=== PATIENT | male | born 1955 | race Two or more races ===

== ENCOUNTER 2017-04-03 23:17 | Emergency (ER) | payer OTHER ==
[~2017-04-03] VITALS: Ht 180.3 cm; Wt 77.1 kg
[2017-04-03] MEDS ORDERED: IV NORMAL SALINE 1000 ML BAG IV ONE (23:30)
--- NOTE | 2017-04-03 23:45 | NUR ---
Pt BIB [facility], reports bystander called in, pt found down on street, unknown what happened. Pt A&Ox4, states he fell forward onto outstretched hands. Both palms both have small abrasions, not bleeding, scant amount of blood on several fingers, abrasion on lower lip, not bleeding. Equal strong veneer taping machine offbearer, dorsiflex, pediflex. Everything symetrical. Speech clear although there is a bit of a language barrier. Pt denies CP, SOB, dizziness, n/v, no other complaints, no distress noted.
[2017-04-03 23:51] LABS: BASOPHILS % (AUTO) 0.3 % (0.0-2.0); EOSINOPHILS # (AUTO) 0.3 K/uL (0.0-0.7); EOSINOPHILS % (AUTO) 2.7 % (0.0-7.0); HEMATOCRIT 39.7 % (40-50); HEMOGLOBIN 13.6 G/DL (14.0-18.0); LYMPHOCYTES # (AUTO) 1.8 K/UL (0.8-4.8); LYMPHOCYTES % (AUTO) 17.4 % (20.5-51.5); MEAN CORPUSCULAR HEMOGLOBIN 33.3 UUG (27.0-31.0); MEAN CORPUSCULAR HGB CONC 34 g/dL (32.0-37.0); MEAN CORPUSCULAR VOLUME 97.4 FL (82.0-92.0); MONOCYTES # (AUTO) 0.6 K/UL (0.1-1.30); MONOCYTES % (AUTO) 5.5 % (0.0-11.0); NEUTROPHILS # (AUTO) 7.6 K/UL (1.8-8.9); NEUTROPHILS % (AUTO) 74.1 % (38.5-71.5); PLATELET COUNT (AUTO) 211 K/UL (150-450); RED BLOOD CELL COUNT(AUTO) 4.08 MIL/UL (4.7-6.1); WHITE BLOOD COUNT (AUTO) 10.3 K/UL (4.0-11.2)
[2017-04-03 23:57] LABS: ALANINE AMINOTRANSFERASE 49 U/L (16-63); ALKALINE PHOSPHATASE 90 U/L (50-136); ASPARTATE AMINOTRANSFERASE 29 U/L (15-37); BILIRUBIN,DIRECT 0.1 mg/dL (0.0-0.2); BILIRUBIN,TOTAL 0.8 mg/dL (0.2-1.0); CARBON DIOXIDE 29 mmol/L (21-32); CHLORIDE 101 mmol/L (98-107); GLUCOSE 183 mg/dL (74-106); POTASSIUM 4.1 mmol/L (3.5-5.1); TOTAL PROTEIN, SERUM 7.5 g/dL (6.4-8.2); UREA NITROGEN, BLOOD 12 mg/dL (7-18)
[2017-04-03 23:58] LABS: ACETAMINOPHEN < 2.0 ug/mL (10-30)
[2017-04-04 00:05] LABS: THYROID STIMULATING HORMONE 2.994 mIU/mL (0.358-3.740)
[2017-04-04] MEDS ORDERED: IV NORMAL SALINE 1000 ML BAG IV ONE (00:15)
[2017-04-04 00:23] LABS: ETHANOL < 3 MG/DL (0-0)
--- NOTE | 2017-04-04 00:30 | NUR ---
Cleaned pt's lip w/saline. Hands cleaned w/soap and water.
--- NOTE | 2017-04-04 02:23 | NUR ---
Pt resting in bed, no complaints, no distress noted.
--- NOTE | 2017-04-04 02:36 | NUR ---
Removed IV intact, site okay, bandaged. Gave d/c instructions, verbalized understanding, son translated.
[2017-04-04 02:37] VITALS: BP 154/93
== END 2017-04-04 02:39 | disposition home or self-care (01) ==
LOC: ER 23:18
DX: E11.65 Type 2 diabetes mellitus with hyperglycemia (principal); Z79.4 Long term (current) use of insulin; Z79.01 Long term (current) use of anticoagulants
CPT/HCPCS: 36415 ×2; 70450; 71010; 80048; 80076; 82140; 83605 ×2; 84443; 84484; 85025; 85730; 87040; 93005; 96360; 96361; 99285; A4663; G0480 ×2; G0481; J7030 ×2; 70030-TC

== ENCOUNTER 2017-07-25 01:31 | Inpatient (IN) | END 2017-07-31 16:10 | DRG 45 | DX: I63.9 Cerebral infarction, unspecified (principal); G93.41 Metabolic encephalopathy; E11.649 Type 2 diabetes mellitus with hypoglycemia without coma; E11.65 Type 2 diabetes mellitus with hyperglycemia; E86.0 Dehydration; I69.354 Hemiplegia and hemiparesis following cerebral infarction affecting left non-dominant side; E78.5 Hyperlipidemia, unspecified; Z79.01 Long term (current) use of anticoagulants; Z79.899 Other long term (current) drug therapy; I10 Essential (primary) hypertension; N40.0 Benign prostatic hyperplasia without lower urinary tract symptoms; D72.829 Elevated white blood cell count, unspecified ==

== ENCOUNTER 2017-08-28 16:59 | Inpatient (IN) | payer OTHER ==
[~2017-08-28] VITALS: Ht 177.8 cm; Wt 59.0 kg
[~2017-08-28 16:59] MED LIST: APIX5TAB PO; ESCI10TA55 PO; LISI-603 PO; OXYB10TA PO; TAMS0.4C34 PO
[2017-08-28] MEDS ORDERED: IV NORMAL SALINE 1000 ML BAG IV ONE (17:15)
[2017-08-28] MEDS ORDERED: METFORMIN PO (17:39)
--- NOTE | 2017-08-28 17:39 | NUR ---
Home medication list updated with limited info provided by EMS. Per EMS pt's daughter will come in with further info.
--- NOTE | 2017-08-28 18:10 | NUR ---
Pt home medication list updated with info provided by pt's daughter. I called and spoke with Andrade at [facility] and [facility] ) who stated he will fax a list of pt's current meds.
[2017-08-28 18:44] LABS: BASOPHILS % (AUTO) 0.2 % (0.0-2.0); HEMATOCRIT 46.4 % (36.7-47.1); HEMOGLOBIN 15.4 g/dL (12.5-16.3); LYMPHOCYTES # (AUTO) 1.3 K/uL (20.0-40.0); LYMPHOCYTES % (AUTO) 9.1 % (20.5-51.5); MEAN CORPUSCULAR HEMOGLOBIN 32.3 uug (23.8-33.4); MEAN CORPUSCULAR HGB CONC 33 g/dL (32.5-36.3); MEAN CORPUSCULAR VOLUME 96.9 fL (73.0-96.2); MONOCYTES # (AUTO) 0.5 K/uL (2.0-10.0); MONOCYTES % (AUTO) 3.6 % (0.0-11.0); NEUTROPHILS # (AUTO) 12.3 K/uL (1.8-8.9); NEUTROPHILS % (AUTO) 87.1 % (38.5-71.5); PLATELET COUNT (AUTO) 273 K/uL (152-348); RED BLOOD CELL COUNT(AUTO) 4.78 MIL/uL (4.06-5.63); WHITE BLOOD COUNT (AUTO) 14.1 K/uL (3.6-10.2)
[2017-08-28 18:55] LABS: BILIRUBIN,DIRECT 0.2 mg/dL (0.0-0.2); BILIRUBIN,TOTAL 0.7 mg/dL (0.2-1.0); CREATININE 1.6 mg/dL (0.6-1.3); POTASSIUM 4.9 mmol/L (3.5-5.1); TOTAL PROTEIN, SERUM 7.6 g/dL (6.4-8.2)
--- NOTE | 2017-08-28 19:25 | NUR ---
Assumed care of patient. No acute distress noted.
[2017-08-28 19:33] LABS: *BILIRUBIN,URIN NEGATIVE (NEGATIVE); *BLOOD, URINE Trace-intact (NEGATIVE); *CLARITY,URINE CLEAR (CLEAR); *COLOR,URINE LIGHT YELLOW (YELLOW); *KETONES,URINE 4+ (NEGATIVE); *PROTEIN,URINE NEGATIVE (NEGATIVE); *UROBILINOGEN,URINE 0.2 E.U./dl (NORMAL); LEUKOCYTE ESTERASE ,URINE NEGATIVE (NEGATIVE); NITRITE, URINE NEGATIVE (NEGATIVE); PH,URINE 5.5 (5.0-8.0)
--- NOTE | 2017-08-28 19:37 | NUR ---
EPIC PAGED, TOLD DR STOVER WILL RETURN CALL
[2017-08-28 19:45] LABS: UGLUCOSE 2+ (NEGATIVE)
[2017-08-28] MEDS ORDERED: INSULIN REGULAR, HUMAN 1,000 UNITS/10 ML VIAL IV ONE (19:45)
[2017-08-28 19:46] LABS: URINE AMORPHOUS URATE FEW /HPF; WBC,URINE NONE SEEN /HPF (0-3)
[2017-08-28 20:03] LABS: ABG HCO3 12.1 mmol/L; ABG PCO2 24.3 mmHg (35.0-45.0); ABG PH 7.314 (7.350-7.450); ABG PO2 99.3 mmHg (75.0-100.0); ABG SITE RIGHT RADIAL; ABG TOTAL HEMOGLOBIN 15.6 G/dL (13.5-18.0); COHb 1.6 % (0.5-1.5); MetHb 0.3 % (0.0-1.5); O2Hb 95.8 % (94.0-97.0); VENT MODE room air
--- NOTE | 2017-08-28 20:06 | NUR ---
BLOOD GLUCOSE 505. NOTIFIED
[2017-08-28] MEDS ORDERED: INSULIN NPH 1,000 UNITS/10 ML VIAL SQ ONE (20:25)
[2017-08-28] MEDS ORDERED: ENOXAPARIN SODIUM 40 MG/0.4 ML DISP.SYRIN SQ SCH (20:45)
[2017-08-28] MEDS ORDERED: ACETAMINOPHEN 650 MG SUPP.RECT RC PRN (20:45)
[2017-08-28] MEDS ORDERED: ONDANSETRON 4 MG/2 ML VIAL IV PRN (20:45)
[2017-08-28] MEDS ORDERED: Z GUARD REMEDY PASTE 57 GM TUBE TOP PRN (20:45)
[2017-08-28] MEDS ORDERED: DEXTROSE 50% 50 ML DISP.SYRIN IV PRN (20:45)
[2017-08-28] MEDS ORDERED: MORPHINE SULFATE 4 MG/1 ML DISP.SYRIN IV PRN (20:45)
--- NOTE | 2017-08-28 20:52 | NUR ---
BLOOD GLUCOSE 470. NOTIFIED
[2017-08-28 21:00] VITALS: BP 152/72
--- NOTE | 2017-08-28 21:01 | NUR ---
Report given to Filomena SANTAMARIA. Patient in bed, no acute distress noted. Admitted to [facility] under Dr Freedom Chaparro.
--- NOTE | 2017-08-28 21:05 | NUR ---
ADMITTED PATIENT TO ROOM 217,PATIENT AWAKE.CONFUSED,NON VERBAL WITH GENERALIZED WEAKNESS,INCONTINENCE OF URINE AND STOOL, FAMILY AT BEDSIDE, DAUGHTER STATED PATIENT IS FULL CODE, PATIENT PLACED ON TELE, ST , NPO STATUS, FAMILY AWARE.FALL PRECAUTIONS, BED ALARM ON.
[2017-08-28] MEDS: INSULIN DETEMIR 300 UNIT/3 ML CARTRIDGE SQ SCH (22:19)
[2017-08-28] MEDS ORDERED: ENOXAPARIN SODIUM 40 MG/0.4 ML DISP.SYRIN SQ ONE (22:27)
[2017-08-29] VITALS (7 sets, daily range): BP systolic 132–171; BP diastolic 67–93
--- NOTE | 2017-08-29 00:05 | NUR ---
BLOOD GLUCOSE 425 REGULAR INSULIN 10 UNITS SUBCUTANEOUS GIVEN PER SCALE, DR. BERRIOS MADE AWARE,NO NEW ORDER.
[2017-08-29] MEDS: IV NS 1000 ML 1,000 ML IV PRN ×3 (00:23→07:12)
[2017-08-29] MEDS: BLOOD SUGAR DIAGNOSTIC 1 EACH STRIP VI SCH ×4 (00:34→17:41)
[2017-08-29] MEDS: INSULIN REGULAR, HUMAN 300 UNIT/3 ML VIAL SQ PRN ×4 (00:36→18:32)
[2017-08-29 07:28] LABS: BASOPHILS % (AUTO) 0.2 % (0.0-2.0); EOSINOPHILS % (AUTO) 0.3 % (0.0-7.0); HEMATOCRIT 45.4 % (36.7-47.1); HEMOGLOBIN 15.6 g/dL (12.5-16.3); LYMPHOCYTES # (AUTO) 2.2 K/uL (20.0-40.0); LYMPHOCYTES % (AUTO) 15.3 % (20.5-51.5); MEAN CORPUSCULAR HEMOGLOBIN 32.5 uug (23.8-33.4); MEAN CORPUSCULAR HGB CONC 34 g/dL (32.5-36.3); MEAN CORPUSCULAR VOLUME 94.5 fL (73.0-96.2); MONOCYTES # (AUTO) 1.1 K/uL (2.0-10.0); MONOCYTES % (AUTO) 7.5 % (0.0-11.0); NEUTROPHILS # (AUTO) 11.1 K/uL (1.8-8.9); NEUTROPHILS % (AUTO) 76.7 % (38.5-71.5); PLATELET COUNT (AUTO) 281 K/uL (152-348); RED BLOOD CELL COUNT(AUTO) 4.81 MIL/uL (4.06-5.63); WHITE BLOOD COUNT (AUTO) 14.4 K/uL (3.6-10.2)
[2017-08-29 07:38] LABS: CREATININE 1.2 mg/dL (0.6-1.3); PHOSPHOROUS 2.6 mg/dL (2.5-4.9); POTASSIUM 3.4 mmol/L (3.5-5.1)
[2017-08-29 07:48] LABS: THYROID STIMULATING HORMONE 0.288 mIU/mL (0.358-3.740)
[2017-08-29] MEDS: PANTOPRAZOLE SODIUM 40 MG VIAL IV SCH (08:23)
--- NOTE | 2017-08-29 10:52 | NUR ---
PER KIMBERLY, HUSSEIN GIVE HYDRALAZINE 10 MG IV Q6PRN FOR SBP >160
[2017-08-29] MEDS ORDERED: hydrALAZINE HCL 20 MG/1 ML VIAL IV PRN (11:00)
[2017-08-29] MEDS ORDERED: IV 1/2NS 1000 ML 1,000 ML IV ONE (12:00)
[2017-08-29] MEDS ORDERED: POTASSIUM CHLORIDE 20 MEQ TAB.PRT.SR PO ONE (12:00)
[2017-08-29] MEDS: APIXABAN 5 MG TABLET PO SCH ×2 (12:40→17:34)
[2017-08-29] MEDS: LISINOPRIL 20 MG TABLET PO SCH (12:41)
[2017-08-29] MEDS: CEFTRIAXONE 1 G in IV DEXTROSE 5% 50 ML IV SCH (14:08)
[2017-08-29 16:31] LABS: POTASSIUM 3.6 mmol/L (3.5-5.1)
--- NOTE | 2017-08-29 19:00 | NUR ---
Received report freom AM shift. Patient sleeping during initial rounds. No s/s of pain/discomfdorts noted. Safety measures and fall precaution maintained. Continue care as planned.
--- NOTE | 2017-08-29 19:00 | NUR ---
PT REPORT IS GIVEN TO NOC SHIFT, PT IS LAYING IN BED COMFORTABLY. NO S/S OF RESPIRATORY DISTRESS NOTED, PT IS ON ROOM AIR. PT IS CALM AND COOPERATIVE, CONFUSED AND DISORIENTED AT TIMES. PT IS ABLE TO MOVE ON COMMANDS. ALL SAFETY NEEDS ARE MET, IV INTACT/PATENT.
[2017-08-29] MEDS ORDERED: ENOXAPARIN SODIUM 40 MG/0.4 ML DISP.SYRIN SQ SCH (21:00)
[2017-08-29] MEDS: ATORVASTATIN 20 MG TABLET PO SCH (22:17)
[2017-08-29] MEDS: TAMSULOSIN HCL 0.4 MG CAP.SR.24H PO SCH (22:17)
[2017-08-29] MEDS: INSULIN DETEMIR 300 UNIT/3 ML CARTRIDGE SQ SCH (22:20)
[2017-08-30 00:21] VITALS: BP 130/76
[2017-08-30] MEDS: BLOOD SUGAR DIAGNOSTIC 1 EACH STRIP VI SCH ×4 (00:25→17:38)
[2017-08-30] MEDS: INSULIN REGULAR, HUMAN 300 UNIT/3 ML VIAL SQ PRN ×3 (00:27→17:40)
--- NOTE | 2017-08-30 05:02 | NUR ---
VS stable. Slept good. BS monitored as ordered. No s/s of hypo/hyperglycemia noted. No s/s of pain/discomforts presented. All needs attended and met. No significant event reported all night. Continue current paln of care.
[2017-08-30] MEDS: PANTOPRAZOLE SODIUM 40 MG VIAL IV SCH (06:01)
[2017-08-30 06:48] VITALS: BP 142/79
[2017-08-30 06:50] LABS: BASOPHILS % (AUTO) 0.3 % (0.0-2.0); EOSINOPHILS # (AUTO) 0.3 K/uL (0.0-0.7); EOSINOPHILS % (AUTO) 1.9 % (0.0-7.0); HEMATOCRIT 46.9 % (36.7-47.1); LYMPHOCYTES # (AUTO) 3.3 K/uL (20.0-40.0); LYMPHOCYTES % (AUTO) 24.3 % (20.5-51.5); MEAN CORPUSCULAR HEMOGLOBIN 32.4 uug (23.8-33.4); MEAN CORPUSCULAR HGB CONC 34 g/dL (32.5-36.3); MEAN CORPUSCULAR VOLUME 94.7 fL (73.0-96.2); MONOCYTES # (AUTO) 0.6 K/uL (2.0-10.0); MONOCYTES % (AUTO) 4.5 % (0.0-11.0); NEUTROPHILS # (AUTO) 9.5 K/uL (1.8-8.9); PLATELET COUNT (AUTO) 251 K/uL (152-348); RED BLOOD CELL COUNT(AUTO) 4.95 MIL/uL (4.06-5.63); WHITE BLOOD COUNT (AUTO) 13.7 K/uL (3.6-10.2)
[2017-08-30 06:56] LABS: CREATININE 0.7 mg/dL (0.6-1.3); PHOSPHOROUS 2.4 mg/dL (2.5-4.9); POTASSIUM 2.9 mmol/L (3.5-5.1)
--- NOTE | 2017-08-30 08:00 | NUR ---
UP ON CHAIR WITH MIN ASSIST, STARTED FEEDING CLOSELY SUPERVISED
[2017-08-30] MEDS: ESCITALOPRAM OXALATE 10 MG TABLET PO SCH (08:42)
[2017-08-30] MEDS: LISINOPRIL 20 MG TABLET PO SCH (08:42)
[2017-08-30] MEDS: APIXABAN 5 MG TABLET PO SCH ×2 (08:50→17:35)
--- NOTE | 2017-08-30 09:00 | NUR ---
PATIENT VOMITED LARGE AMOUNT OF FOOD PREVIOUSLY EATEN. CLOSELY OBSERVED
[2017-08-30] MEDS ORDERED: POTASSIUM CHLORIDE 50 ML IV SCH (09:45)
[2017-08-30] MEDS: POTASSIUM CHLORIDE 10 MEQ in IV NORMAL SALINE 50 ML IV SCH ×2 (11:09→12:38)
[2017-08-30 11:50] VITALS: BP 120/72
--- NOTE | 2017-08-30 12:00 | NUR ---
ZOFRAN IV GIVEN FOR C/O NAUSEA
--- NOTE | 2017-08-30 12:30 | NUR ---
TOLERATED LUNCH WELL NO FURTHER NAUSEA. HOSPITALIST IN MADE AWARE OF VOMITING WITH ORDER FOR NPO AND START IVF
[2017-08-30] MEDS: CEFTRIAXONE 1 G in IV DEXTROSE 5% 50 ML IV SCH (14:31)
[2017-08-30 15:52] VITALS: BP 152/93
[2017-08-30] MEDS: IV D5W 1000ML 1,000 ML IV PRN (16:00)
--- NOTE | 2017-08-30 16:35 | NUR ---
STARTED NPO ORDERED, AWAITING ST EVAL D5W STARTED AT 75 ML/HR
[2017-08-30] MEDS ORDERED: NEUTRA PHOS PACKET PO ONE (16:45)
[2017-08-30] MEDS: TAMSULOSIN HCL 0.4 MG CAP.SR.24H PO SCH (20:32)
[2017-08-30] MEDS: ATORVASTATIN 20 MG TABLET PO SCH (20:32)
[2017-08-30] MEDS: INSULIN DETEMIR 300 UNIT/3 ML CARTRIDGE SQ SCH (20:33)
[2017-08-30 20:48] VITALS: BP 133/77
[2017-08-31] MEDS: BLOOD SUGAR DIAGNOSTIC 1 EACH STRIP VI SCH ×5 (00:20→23:22)
[2017-08-31] MEDS: INSULIN REGULAR, HUMAN 300 UNIT/3 ML VIAL SQ PRN ×5 (00:22→23:25)
[2017-08-31 00:42] VITALS: BP 129/78
--- NOTE | 2017-08-31 03:30 | NUR ---
SLEPT MOST OF THE NITE,REPOSITIONED FOE COMFORT.INCONTINENT OF URINE.IN NO ACUTE DISTRESS.
[2017-08-31 04:00] VITALS: BP 109/61
[2017-08-31] MEDS: IV D5W 1000ML 1,000 ML IV PRN (05:36)
[2017-08-31] MEDS: PANTOPRAZOLE SODIUM 40 MG VIAL IV SCH (07:10)
[2017-08-31 07:15] LABS: BASOPHILS % (AUTO) 0.3 % (0.0-2.0); EOSINOPHILS # (AUTO) 0.3 K/uL (0.0-0.7); EOSINOPHILS % (AUTO) 3.6 % (0.0-7.0); HEMATOCRIT 43.4 % (36.7-47.1); HEMOGLOBIN 14.9 g/dL (12.5-16.3); LYMPHOCYTES # (AUTO) 3.3 K/uL (20.0-40.0); LYMPHOCYTES % (AUTO) 35.3 % (20.5-51.5); MEAN CORPUSCULAR HEMOGLOBIN 32.7 uug (23.8-33.4); MEAN CORPUSCULAR HGB CONC 34 g/dL (32.5-36.3); MEAN CORPUSCULAR VOLUME 95.2 fL (73.0-96.2); MONOCYTES # (AUTO) 0.4 K/uL (2.0-10.0); MONOCYTES % (AUTO) 4.7 % (0.0-11.0); NEUTROPHILS # (AUTO) 5.2 K/uL (1.8-8.9); NEUTROPHILS % (AUTO) 56.1 % (38.5-71.5); PLATELET COUNT (AUTO) 198 K/uL (152-348); RED BLOOD CELL COUNT(AUTO) 4.56 MIL/uL (4.06-5.63); WHITE BLOOD COUNT (AUTO) 9.2 K/uL (3.6-10.2)
[2017-08-31 07:32] LABS: CREATININE 0.7 mg/dL (0.6-1.3); PHOSPHOROUS 3.2 mg/dL (2.5-4.9)
--- NOTE | 2017-08-31 08:00 | NUR ---
RESTING IN BED NO SS OF SOB OR ACUTE PAIN. OBSERVED
[2017-08-31 08:05] LABS: POTASSIUM 2.8 mmol/L (3.5-5.1)
[2017-08-31] MEDS: ESCITALOPRAM OXALATE 10 MG TABLET PO SCH (08:49)
[2017-08-31] MEDS: LISINOPRIL 20 MG TABLET PO SCH (08:49)
[2017-08-31] MEDS: APIXABAN 5 MG TABLET PO SCH ×2 (08:51→17:26)
[2017-08-31] MEDS: CEFTRIAXONE 1 G in IV DEXTROSE 5% 50 ML IV SCH (11:51)
[2017-08-31 11:54] VITALS: BP 101/60
--- NOTE | 2017-08-31 12:00 | NUR ---
NO SS OF HYPO OR HYPERGLYCEMIA CONTINUE WITH Q6 ACCUCHECK
--- NOTE | 2017-08-31 13:51 | NUR ---
CONTINUE NPO PENDING ST EVAL FOR POSSIBLE ASPIRATION. CONTINUE WITH IVF 75 MLS/HR
[2017-08-31] MEDS ORDERED: POTASSIUM CHLORIDE 50 ML IV SCH (14:45)
[2017-08-31 16:02] VITALS: BP 120/71
[2017-08-31] MEDS: POTASSIUM CHLORIDE 10 MEQ in IV DEXTROSE 5% 50 ML IV SCH ×4 (16:09→21:11)
--- NOTE | 2017-08-31 18:26 | NUR ---
NURSING SWALLOW EVAL COMPLETED PATIENT TOLERATED THIN LIQUID 15-30 ML PO NO SIGNS OF COUGHING, CHOKING OR SS OF ASPIRATION
[2017-08-31 20:00] VITALS: BP 145/75
[2017-08-31] MEDS: TAMSULOSIN HCL 0.4 MG CAP.SR.24H PO SCH (21:06)
[2017-08-31] MEDS: ATORVASTATIN 20 MG TABLET PO SCH (21:06)
[2017-08-31] MEDS: INSULIN DETEMIR 300 UNIT/3 ML CARTRIDGE SQ SCH (21:10)
[2017-08-31] MEDS ORDERED: ATOR20TA PO (21:45)
[2017-09-01] MEDS: INSULIN REGULAR, HUMAN 300 UNIT/3 ML VIAL SQ PRN ×4 (05:59→23:59)
[2017-09-01] MEDS: BLOOD SUGAR DIAGNOSTIC 1 EACH STRIP VI SCH ×4 (06:01→23:37)
[2017-09-01] MEDS: PANTOPRAZOLE SODIUM 40 MG VIAL IV SCH (06:11)
[2017-09-01 06:43] VITALS: BP 132/45
[2017-09-01 06:56] LABS: CREATININE 0.9 mg/dL (0.6-1.3); MAGNESIUM 1.8 mg/dL (1.8-2.4); PHOSPHOROUS 4.3 mg/dL (2.5-4.9)
--- NOTE | 2017-09-01 06:59 | NUR ---
PATIENT AWAKE UNTIL 0100. PATIENT WAS PLAYING WITH IS IV AND CLAMPING THE TUBING OFTEN. WAS ABLE TO TOLERATE WATER WITHOUT ASPIRATION OR CHOKING. BLOOD SUGAR AT 0000 WAS 304 AND AT 0500 WAS 297. SLIDING SCALE INSULIN GIVEN ORDERED. NO EPISODE OF HYPERGLYCEMIA. ASLEEP IN BED AT THIS TIME. NO S/S DISTRESS NOTED.
[2017-09-01 07:26] LABS: BASOPHILS % (AUTO) 0.5 % (0.0-2.0); EOSINOPHILS # (AUTO) 0.4 K/uL (0.0-0.7); EOSINOPHILS % (AUTO) 5.4 % (0.0-7.0); LYMPHOCYTES # (AUTO) 3.5 K/uL (20.0-40.0); LYMPHOCYTES % (AUTO) 42.7 % (20.5-51.5); MEAN CORPUSCULAR HGB CONC 35 g/dL (32.5-36.3); MONOCYTES # (AUTO) 0.4 K/uL (2.0-10.0); MONOCYTES % (AUTO) 4.8 % (0.0-11.0); NEUTROPHILS # (AUTO) 3.9 K/uL (1.8-8.9); NEUTROPHILS % (AUTO) 46.6 % (38.5-71.5); PLATELET COUNT (AUTO) 178 K/uL (152-348); RED BLOOD CELL COUNT(AUTO) 4.05 MIL/uL (4.06-5.63); WHITE BLOOD COUNT (AUTO) 8.3 K/uL (3.6-10.2)
[2017-09-01 07:27] LABS: HEMATOCRIT 38.1 % (36.7-47.1); HEMOGLOBIN 13.4 g/dL (12.5-16.3)
[2017-09-01 08:21] VITALS: BP 127/77
[2017-09-01] MEDS: APIXABAN 5 MG TABLET PO SCH ×2 (09:47→17:59)
[2017-09-01] MEDS: ESCITALOPRAM OXALATE 10 MG TABLET PO SCH (09:47)
[2017-09-01] MEDS: LISINOPRIL 20 MG TABLET PO SCH (09:47)
[2017-09-01] MEDS ORDERED: POTASSIUM CHLORIDE 20 MEQ TAB.PRT.SR PO ONE (11:15)
[2017-09-01 11:46] VITALS: BP 118/66
[2017-09-01] MEDS: CEFTRIAXONE 1 G in IV DEXTROSE 5% 50 ML IV SCH (13:12)
[2017-09-01] MEDS ORDERED: INSU100I19 SQ (14:33)
[2017-09-01] MEDS ORDERED: INSU100V28 SQ (14:33)
[2017-09-01 16:00] VITALS: BP 112/68
--- NOTE | 2017-09-01 19:00 | NUR ---
Nurses Note: Charge Nurse Solange stated Discharge is cancelled til tomorrow. Accu-check at 1140 was 442, DRYWALL PROFESSIONAL Giselle Steven was notified that the D5W was still infusing this morning, DRYWALL PROFESSIONAL stated it was supposed to be stopped last night. There was only 50 cc left in bag this morning, no further bag was hanged, it was discontinued. Patient received IV Zosyn and IV Vanco, Patient accidently scratched left wrist and IV was pulled out. Vancomycin was half completed, Night nurse to restart IV and hang the Meropenem after the Vancomycin is infused. Addendum: 09/01/17 at 2023 by JULIO CESAR BARNARD RN Last three sentence was charted incorrectly, Patient is not on any IV Vancomycin or Zosyn, Patient received IV Rocephin
[2017-09-01 20:00] VITALS: BP 152/67
--- NOTE | 2017-09-01 20:00 | NUR ---
RECEIVED PT AWAKE IN BED, HE'S ALERT BUT VERY CONFUSED FARSI SPEAKING ONLY. NO SIGNS OR SYMPTOMS OF PAIN OR DISCOMFORT AT PRESENT. SAFETY MEASURES IN PLACE, BED IS LOCKED, ALARM ON. CALL LIGHT WITHIN PT'S REACH, WILL CONTINUE TO MONITOR PT
[2017-09-01 21:00] VITALS: BP 134/72
--- NOTE | 2017-09-01 21:00 | NUR ---
BULL FLOAT FINISHER REPORTED BP OF 152/67 AT 1999, REASSESSED PT BP IS NOW 134/72
[2017-09-01] MEDS: ATORVASTATIN 20 MG TABLET PO SCH (21:58)
[2017-09-01] MEDS: TAMSULOSIN HCL 0.4 MG CAP.SR.24H PO SCH (21:58)
[2017-09-01] MEDS: INSULIN DETEMIR 300 UNIT/3 ML CARTRIDGE SQ SCH (22:05)
--- NOTE | 2017-09-02 | NUR ---
PT IS AWAKE IN AMY CHAIR HE CONTINUES TO BE CONFUSED, PT IS CLOSELY MONITORED. NO S/S OF RESP DISTRESS OR DISCOMFORT, NO SIGNIFICANT CHANGES IN STATUS. WILL CONTINUE TO MONITOR PT
[2017-09-02 00:48] VITALS: BP 134/72
[2017-09-02 05:19] VITALS: BP 132/67
[2017-09-02] MEDS: BLOOD SUGAR DIAGNOSTIC 1 EACH STRIP VI SCH ×2 (06:34→11:04)
--- NOTE | 2017-09-02 06:54 | NUR ---
PT IS ASLEEP WITH NO S/S OF PAIN ALL DISTRESS NOTED, CALL LIGHT WITHIN REACH, NO FURTHER CHANGES IN STATUS
[2017-09-02] MEDS ORDERED: PANTOPRAZOLE SODIUM 40 MG TABLET.DR PO SCH (07:00)
[2017-09-02] MEDS: ESCITALOPRAM OXALATE 10 MG TABLET PO SCH (08:38)
[2017-09-02] MEDS: LISINOPRIL 20 MG TABLET PO SCH (08:40)
[2017-09-02] MEDS: APIXABAN 5 MG TABLET PO SCH (10:59)
[2017-09-02 11:59] VITALS: BP 105/54
[2017-09-02] MEDS: INSULIN REGULAR, HUMAN 300 UNIT/3 ML VIAL SQ PRN (12:25)
[2017-09-02] MEDS: CEFTRIAXONE 1 G in IV DEXTROSE 5% 50 ML IV SCH (12:26)
[2017-09-02 15:47] VITALS: BP 115/58
--- NOTE | 2017-09-02 17:39 | NUR ---
DISCHARGED PATIENT IN STABLE CONDITION, REMOVED BOTH IV ACCESS, DISCUSSED DISCHARGE INSTRUCTIONS TO PATIENT'S DAUGHTER, SHE VERBALIZED UNDERSTANDING. TOOK PATIENT DOWN TO PRIVATE CAR ACCOMPANIED BY PATIENT'S DAUGHTER AND BROTHER.
== END 2017-09-02 17:10 | disposition home or self-care (01) | DRG 420 ==
LOC: ER 16:59 → DOU 20:58 → TELE-TD 21:19 → TELE 08-29 13:35 → MED 08-30 09:08
PROVIDERS: ATTEND Nurse Practitioner Acute Care
DX: E11.01 Type 2 diabetes mellitus with hyperosmolarity with coma (principal); G93.40 Encephalopathy, unspecified; D68.59 Other primary thrombophilia; E11.65 Type 2 diabetes mellitus with hyperglycemia; E87.6 Hypokalemia; Z86.73 Personal history of transient ischemic attack (TIA), and cerebral infarction without residual deficits; Z79.01 Long term (current) use of anticoagulants; Z79.899 Other long term (current) drug therapy; E78.5 Hyperlipidemia, unspecified; I10 Essential (primary) hypertension; F32.9 Major depressive disorder, single episode, unspecified; N40.0 Benign prostatic hyperplasia without lower urinary tract symptoms; Z74.09 Other reduced mobility
CPT/HCPCS: 36415; 36600; 70030-TC; 70450; 71045; 83605; 83735; 84100; 84443; 85025; 85730; 87040; 87086; 92610; 93005; 97110; 97116; 97530; A4663; C1758; C9113; J0360; J0696; J1650; J1815; J2405; J3480; J3490; J7030; J7050; J7060; J7070

== ENCOUNTER 2017-12-02 13:25 | Emergency (ER) | payer OTHER ==
[~2017-12-02] VITALS: Ht 177.8 cm; Wt 77.1 kg
[~2017-12-02 13:25] MED LIST changes: +ATOR20TA PO; +INSU100I19 SQ
--- NOTE | 2017-12-02 13:25 | NUR ---
PT [address]IB [address] SLIGHTLY DIAPHERETIC PER EMS. PT SPEAKS FARSI, TRANSLATED BY ME. PT ORIENTED ONLY TO NAME. PT CAME WITH A WALKER, PER PT, PT HAS HAD LEFT HIP PROBLEM AND THATS WHY THE PT USES THE WALKER. HENCE THE LIMITED ROM ON THE LE.
--- NOTE | 2017-12-02 13:39 | NUR ---
Loy alexander in [facility] - 12/02/17 at 1448 by [id number] PT DOES NOT KNOW THE HOME NUMBER OR KIDS PHONE NUMBER.
--- NOTE | 2017-12-02 13:40 | NUR ---
CALLED PT HOME AT [phone], AND PT SON AT [phone] AND LEFT A MESSAGE, THE NUMBERS WERE FFOUND FROM PREVIOUS VISIT
[2017-12-02] MEDS ORDERED: IV NORMAL SALINE 1000 ML BAG IV ONE (14:00)
--- NOTE | 2017-12-02 14:03 | NUR ---
SBAR REPORT GIVEN TO MELONIE LUA LVN
--- NOTE | 2017-12-02 14:30 | NUR ---
PATIENT BACK FROM RADIOLOGY ROOM 04A.
--- NOTE | 2017-12-02 14:48 | NUR ---
MEDICATIONS RECONCILED WITH DISCHARGE INSTRUCTIONS ON 09/02/2017.
[2017-12-02 14:51] LABS: BASOPHILS % (AUTO) 0.2 % (0.0-2.0); EOSINOPHILS # (AUTO) 0.1 K/uL (0.0-0.7); EOSINOPHILS % (AUTO) 0.9 % (0.0-7.0); HEMATOCRIT 39.8 % (36.7-47.1); HEMOGLOBIN 13.3 g/dL (12.5-16.3); LYMPHOCYTES # (AUTO) 1.1 K/uL (20.0-40.0); LYMPHOCYTES % (AUTO) 10.1 % (20.5-51.5); MEAN CORPUSCULAR HEMOGLOBIN 30.6 uug (23.8-33.4); MEAN CORPUSCULAR HGB CONC 33 g/dL (32.5-36.3); MEAN CORPUSCULAR VOLUME 91.6 fL (73.0-96.2); MONOCYTES # (AUTO) 0.5 K/uL (2.0-10.0); MONOCYTES % (AUTO) 4.7 % (0.0-11.0); NEUTROPHILS # (AUTO) 9.3 K/uL (1.8-8.9); NEUTROPHILS % (AUTO) 84.1 % (38.5-71.5); PLATELET COUNT (AUTO) 185 K/uL (152-348); RED BLOOD CELL COUNT(AUTO) 4.35 MIL/uL (4.06-5.63); WHITE BLOOD COUNT (AUTO) 11.1 K/uL (3.6-10.2)
[2017-12-02 14:59] LABS: CARBON DIOXIDE 29 mmol/L (21-32); CHLORIDE 100 mmol/L (98-107); CREATININE 0.8 mg/dL (0.6-1.3); GLUCOSE 269 mg/dL (74-106); UREA NITROGEN, BLOOD 17 mg/dL (7-18)
[2017-12-02 15:04] LABS: ALANINE AMINOTRANSFERASE 51 U/L (16-63); ALKALINE PHOSPHATASE 148 U/L (50-136); ASPARTATE AMINOTRANSFERASE 19 U/L (15-37); BILIRUBIN,DIRECT 0.1 mg/dL (0.0-0.2); BILIRUBIN,TOTAL 0.6 mg/dL (0.2-1.0); TOTAL PROTEIN, SERUM 7.3 g/dL (6.4-8.2)
[2017-12-02 15:11] LABS: ETHANOL < 3 MG/DL (0-0)
[2017-12-02 15:12] LABS: ACETAMINOPHEN < 2.0 ug/mL (10-30); THYROID STIMULATING HORMONE 0.998 mIU/mL (0.358-3.740)
[2017-12-02] MEDS ORDERED: ONDANSETRON 4 MG/2 ML VIAL ONE (15:23)
[2017-12-02] MEDS ORDERED: MORPHINE SULFATE 4 MG/1 ML DISP.SYRIN ONE (15:23)
[2017-12-02] MEDS ORDERED: ONDANSETRON IV *ER 4 MG/2 ML VIAL IV ONE (15:30)
[2017-12-02] MEDS ORDERED: MORPHINE SULFATE 4 MG/1 ML DISP.SYRIN IV ONE (15:30)
--- NOTE | 2017-12-02 15:50 | NUR ---
SS consult requested by ED RN Didier, to assist with locating patient's family members. Patient is a 62 year old male who was brought into the ED by paramedics after being found fallen down on the street near [facility]. Patient speaks Farsi only, and according to HINA Velásquez who also speaks Farsi, it was found that patient is confused and disoriented, unable to provide any information. Phone numbers listed on patient's face sheets are incorrect. Patient's primary physician is Dr. Yosvany Shannon, and therefore SW called Dr. Shannon's office [phone] and was able to obtain family contact information from 's office. Patient's daughter is Yolis [phone]. ESTRELLA called Yolis and informed her that patient was in the ED. Yolis also spoke with HINA Velásquez. Yolis stated that she lives in [place] and was unable to come to the ED at this moment, however was going to notify her brother, Thong [phone]. Patient lives with his , but she only speaks Farsi. Home phone # is [phone].
[2017-12-02 16:06] LABS: *BILIRUBIN,URIN NEGATIVE (NEGATIVE); *BLOOD, URINE NEGATIVE (NEGATIVE); *CLARITY,URINE CLEAR (CLEAR); *COLOR,URINE LIGHT YELLOW (YELLOW); *KETONES,URINE NEGATIVE (NEGATIVE); *PROTEIN,URINE NEGATIVE (NEGATIVE); *UROBILINOGEN,URINE 0.2 E.U./dl (NORMAL); LEUKOCYTE ESTERASE ,URINE NEGATIVE (NEGATIVE); NITRITE, URINE NEGATIVE (NEGATIVE)
[2017-12-02 16:30] LABS: UGLUCOSE 1+ (NEGATIVE)
[2017-12-02 16:32] LABS: *AMPHETAMINE, URINE NEGATIVE (NEGATIVE); *BARBITURATE, URINE NEGATIVE (NEGATIVE); *CANNABINOID, URINE NEGATIVE (NEGATIVE); *COCCAINE, URINE NEGATIVE (NEGATIVE); *OPIATE, URINE POSITIVE (NEGATIVE); *PHENCYCLIDINE SCREEN,URINE NEGATIVE (NEGATIVE)
[2017-12-02 16:46] LABS: MUCUS,URINE FEW /LPF (0-FEW); WBC,URINE NONE SEEN /HPF (0-3)
--- NOTE | 2017-12-02 17:08 | NUR ---
TALKED TO LEONEL CAIN POWER SUPPLY ENGINEER, AND GAVE THE INFO. ANT WILL CALL BACK WITH POSSIBLE TRANSFER INFO
--- NOTE | 2017-12-02 18:13 | NUR ---
CALLED JES, PT DAUGHTER AND INFORMED THE DAUGHTER ABOUT THE TRANSFER OF THE PT TO [facility]
--- NOTE | 2017-12-02 19:18 | NUR ---
BS= 129.
--- NOTE | 2017-12-02 19:18 | NUR ---
[facility] AT BEDSIDE TO TRANSFER THE PT TO [facility].
--- NOTE | 2017-12-02 19:24 | NUR ---
CALLED [facility] TWICE TO GIVE REPORT, NO NURSE AVAILABLE DUE TO CHANGE OF SHIFT.
--- NOTE | 2017-12-02 19:43 | NUR ---
CALLED [facility] AGAIN TO GIVE REPORT. PLACED ON HOLD FOR A LONG TIME AND NO RESPONSE. REPORT WILL BE GIVE TO VANDANA SANTAMARIA PRODUCTION LEADER.
== END 2017-12-02 19:25 | disposition other institution (70) ==
LOC: ER 13:25
DX: S72.002A Fracture of unspecified part of neck of left femur, initial encounter for closed fracture (principal); E78.5 Hyperlipidemia, unspecified; I10 Essential (primary) hypertension; E11.9 Type 2 diabetes mellitus without complications; Z79.4 Long term (current) use of insulin; Z79.899 Other long term (current) drug therapy; Z86.73 Personal history of transient ischemic attack (TIA), and cerebral infarction without residual deficits; X58.XXXA Exposure to other specified factors, initial encounter; Y93.89 Activity, other specified; Y92.89 Other specified places as the place of occurrence of the external cause; Y99.8 Other external cause status
CPT/HCPCS: 36415; 70030-TC; 70450; 71045; 72125; 72192; 80307; 83605; 84443; 85025; 85730; 87040; 87086; 93005; A4663; G0480; G0480-TC; J2270; J2405; J7030